=== PATIENT | male | born 1995 | race Caucasian/White ===

== ENCOUNTER 2021-10-26 20:10 | Emergency (ER) | payer OTHER, BC ==
[2021-10-26] MEDS ORDERED: Ketorolac Tromethamine 30 MG/ML VIAL ONE (20:28)
[2021-10-26] MEDS ORDERED: Triple Antibiotic Oint 1 GM Packet ONE (22:25)
== END 2021-10-26 22:45 | disposition home or self-care (01) ==
LOC: CSHERS 20:10
DX: S93.02XA Subluxation of left ankle joint, initial encounter (principal); V03.10XA Pedestrian on foot injured in collision with car, pick-up truck or van in traffic accident, initial encounter
CPT/HCPCS: J1885

== ENCOUNTER 2022-04-07 08:04 | Outpatient (CLI) | payer BC | END 2022-04-07 08:05 | disposition home or self-care (01) | LOC: CSHULT 08:04 | PROVIDERS: ATTEND Family Medicine | DX: R17 Unspecified jaundice (principal); R16.1 Splenomegaly, not elsewhere classified | CPT/HCPCS: 76700 ==

== ENCOUNTER 2022-08-17 14:53 | Outpatient (CLI) | payer BC | END 2022-08-17 14:54 | disposition home or self-care (01) | LOC: CSHMRI 14:53 | PROVIDERS: ATTEND Orthopaedic Surgery | DX: M22.2X1 Patellofemoral disorders, right knee (principal); M67.864 Other specified disorders of tendon, left knee ==